=== PATIENT | female | born 1945 | race Two or more races ===

== ENCOUNTER 2021-02-20 11:45 | Inpatient (IN) | payer MEDICAID ==
[~2021-02-20] VITALS: Ht 167.6 cm; Wt 86.6 kg
--- NOTE | 2021-02-20 12:30 | NUR ---
[place] Cath inserted as per Dr Valentin verbal order
[2021-02-20 12:32] LABS: BASOPHILS % (AUTO) 0.3 % (0.0-2.0); EOSINOPHILS % (AUTO) 1.4 % (0.0-6.0); HEMATOCRIT 41 % (33-45); HEMOGLOBIN 13.3 g/dL (11.5-14.8); LYMPHOCYTES # (AUTO) 3.7 K/uL (0.8-4.8); LYMPHOCYTES % (AUTO) 50.7 % (20.0-44.0); MEAN CORPUSCULAR HGB CONC 33 g/dl (31.0-36.0); MEAN CORPUSCULAR VOLUME 96 fL (82-100); MONOCYTES # (AUTO) 0.7 K/uL (0.1-1.30); MONOCYTES % (AUTO) 9.3 % (2.0-12.0); NEUTROPHILS # (AUTO) 2.8 K/uL (1.8-8.9); NEUTROPHILS % (AUTO) 38.3 % (43.0-81.0); PLATELET COUNT (AUTO) 195 K/uL (150-450); RED BLOOD CELL COUNT(AUTO) 4.22 MIL/uL (4.0-5.2); WHITE BLOOD COUNT (AUTO) 7.3 K/uL (4.3-11.0)
[2021-02-20 12:40] LABS: CALCIUM, SERUM 8.9 mg/dL (8.5-10.1); CREATININE 0.9 mg/dL (0.6-1.3); POTASSIUM 3.9 mmol/L (3.5-5.1)
--- NOTE | 2021-02-20 13:00 | NUR ---
Family at bedside. Aware of plan of care
--- NOTE | 2021-02-20 13:20 | NUR ---
MOVE SHEET SUBMITTED AND CALLED FOR MS BED.
--- NOTE | 2021-02-20 13:25 | NUR ---
[facility] CALLED PARENT EDUCATOR PAGED.
--- NOTE | 2021-02-20 13:26 | NUR ---
CALLED ORTHO PAGED [facility] [place]
[2021-02-20] MEDS ORDERED: [UNRECOGNIZED DRUG - OTHER] PO (13:41)
[2021-02-20] MEDS ORDERED: CHOL100062 PO (13:41)
[2021-02-20] MEDS ORDERED: CALC1TAB30 PO (13:41)
[2021-02-20] MEDS ORDERED: [UNRECOGNIZED DRUG - OTHER] PO (13:41)
[2021-02-20] MEDS ORDERED: [UNRECOGNIZED DRUG - SUPPLY] PO (13:41)
[2021-02-20] MEDS ORDERED: ONDANSETRON HCL/PF 4 MG/2 ML VIAL ONE (13:56)
[2021-02-20] MEDS ORDERED: ACETAMINOPHEN 325 MG TABLET PO PRN (14:00)
[2021-02-20] MEDS ORDERED: Z GUARD REMEDY 2 OZ OINT TP PRN (14:00)
[2021-02-20] MEDS ORDERED: ONDANSETRON HCL/PF 4 MG/2 ML VIAL IVP PRN (14:00)
[2021-02-20] MEDS ORDERED: MAGNESIUM HYDROXIDE 30 ML UDC PO PRN (14:00)
--- NOTE | 2021-02-20 14:00 | NUR ---
Pt vomited 2x/complaining of "pain and stomach acid" Dr Valentin made aware verbal orders for morphine/zofran obtained given as ordered. Daughter at bedside aware of plan of care
[2021-02-20] MEDS ORDERED: MAG HYDROX/AL HYDROX/SIMETH 30 ML UDC ONE (14:03)
[2021-02-20] MEDS ORDERED: MORPHINE SULFATE INJ 2 MG/ML DISP.SYRIN ONE ×2 (14:03→18:21)
[2021-02-20] MEDS: MAG HYDROX/AL HYDROX/SIMETH 30 ML UDC PO PRN (14:05)
[2021-02-20] MEDS: MORPHINE SULFATE INJ 2 MG/ML DISP.SYRIN IV PRN ×3 (14:05→22:37)
--- NOTE | 2021-02-20 16:00 | NUR ---
Sleeping soundly, NAD . Family at bedside updated w/plan of care
--- NOTE | 2021-02-20 18:16 | NUR ---
Covid swab sent
--- NOTE | 2021-02-20 18:24 | NUR ---
Medicated for complaints of pain
--- NOTE | 2021-02-20 18:37 | NUR ---
GOT BED 326-1 READY AFTER 193
--- NOTE | 2021-02-20 20:00 | NUR ---
REPORT GIVEN TO JOON GODOY ON THE PHONE W/ DR LYNN, ORTHO
--- NOTE | 2021-02-20 20:11 | NUR ---
PT WAS TRANSFERRED TO 326 IN STABLE CONDITION
--- NOTE | 2021-02-20 20:15 | NUR ---
MS/RN OPENING NOTE RECEIVED REPORT FROM HEAD OF DIGITAL ADVERTISING & INTEGRATION CARLOS. PATIENT ARRIVED TO UNIT VIA GURNEY AND 2 STAFF MEMBERS. PATIENT ASSISTED TO ROOM 326-1 - ADMITTING DX OF RIGHT FEMUR FRACTURE S/P FALL. PATIENT IS ALERT AND ORIENTED X 4. PORTUGUESE SPEAKING ONLY. C/O PAIN TO RIGHT HIP - WILL ADMINISTER PAIN MEDICATION WHEN DUE. CONTINUES ON 02 2L VIA NC WITH NO S/SX OF RESPIRATORY DISTRESS NOTED. IV ACCESS TO LEFT HAND #20G INTACT, PATENT AND SALINE LOCKED. SKIN CHECK PERFORMED WITH NO SKIN ISSUES NOTED. RIGHT LOWER LEG ROTATION AND SHORTENING NOTED. PATIENT VACCINATED FOR COVID 19 X 2 DOSES. PATIENT ORIENTED TO ROOM, CALL LIGHT AND UNIT. CALL LIGHT WITHIN REACH. ASPIRATION, FALL AND SAFETY PRECAUTIONS MAINTAINED. WILL CONTINUE TO MONITOR.
[2021-02-20] MEDS ORDERED: IBUPROFEN 600 MG TABLET PO PRN (20:30)
--- NOTE | 2021-02-20 20:30 | NUR ---
MS/RN NOTE PATIENT WITH INCREASED BLOOD PRESSURE AND C/O PAIN TO RIGHT HIP. BP 173/97. MANAGER PROFESSIONAL DEVELOPMENT MD KULKARNI NOTIFIED WITH NEW ORDER FOR MOTRIN 600MG Q6HRS PRN. INSTRUCTED TO ADMINISTER TYLENOL AND MOTRIN TOGETHER FOR BREAKTHROUGH PAIN. ORDER ADDED TO EMAR AND ADMINISTERED. WILL CONTINUE TO MONITOR.
[2021-02-20 20:51] VITALS: BP 173/97
[2021-02-20 21:02] VITALS: BP 173/97
[2021-02-21] VITALS (11 sets, daily range): BP systolic 65–137; BP diastolic 38–104
[2021-02-21] MEDS: MORPHINE SULFATE INJ 2 MG/ML DISP.SYRIN IV PRN (06:02)
[2021-02-21 06:24] LABS: BASOPHILS % (AUTO) 0.2 % (0.0-2.0); EOSINOPHILS % (AUTO) 1.1 % (0.0-6.0); HEMATOCRIT 36 % (33-45); HEMOGLOBIN 11.9 g/dL (11.5-14.8); LYMPHOCYTES # (AUTO) 1.6 K/uL (0.8-4.8); LYMPHOCYTES % (AUTO) 27.2 % (20.0-44.0); MEAN CORPUSCULAR HGB CONC 33 g/dl (31.0-36.0); MEAN CORPUSCULAR VOLUME 96 fL (82-100); MONOCYTES # (AUTO) 0.6 K/uL (0.1-1.30); MONOCYTES % (AUTO) 10.4 % (2.0-12.0); NEUTROPHILS # (AUTO) 3.6 K/uL (1.8-8.9); NEUTROPHILS % (AUTO) 61.1 % (43.0-81.0); PLATELET COUNT (AUTO) 154 K/uL (150-450); RED BLOOD CELL COUNT(AUTO) 3.72 MIL/uL (4.0-5.2); WHITE BLOOD COUNT (AUTO) 5.9 K/uL (4.3-11.0)
--- NOTE | 2021-02-21 06:35 | NUR ---
MS/RN CLOSING NOTE PATIENT CURRENTLY SLEEPING IN BED. ALERT AND ORIENTED X 4. ABLE TO MAKE NEEDS KNOWN. PRIMARILY BULGARIAN SPEAKING. DENIES PAIN AT THIS TIME. CONTINUES ON O2 2L VIA NC WITH NO S/SX OF RESPIRATORY DISTRESS NOTED. IV ACCESS TO LEFT HAND #20G INTACT, PATENT AND SALINE LOCKED. CALL LIGHT WITHIN REACH. ASPIRATION, FALL AND SAFETY PRECAUTIONS MAINTAINED. WILL ENDORSE PLAN OF CARE TO ONCOMING SHIFT.
[2021-02-21 06:41] LABS: CALCIUM, SERUM 8.5 mg/dL (8.5-10.1); CREATININE 0.8 mg/dL (0.6-1.3); MAGNESIUM 2.4 mg/dL (1.8-2.4); PHOSPHORUS 3.1 mg/dL (2.5-4.9); POTASSIUM 3.9 mmol/L (3.5-5.1)
--- NOTE | 2021-02-21 07:40 | NUR ---
RN OPENING NOTE RECEIVED PATIENT IN BED. A/O X4. ON NC 02 AT 2 LPM. NO SOB NOTED. NO S/S OF RESPIRATORY DISTRESS. DENIES ANY PAIN OR DISCOMFORT AT THIS TIME. IV ACCESS ON L HAND 20 G, INTACT. SAFETY MEASURES MAINTAINED. BED IN LOWEST POSITION, BRAKES LOCKED. SIDE RAILS UP X2. CALL LIGHT WITHIN REACH. WILL CONTINUE PLAN OF CARE.
[2021-02-21] MEDS ORDERED: CLONIDINE HCL 0.1 MG TABLET PO PRN (09:30)
[2021-02-21] MEDS: METOPROLOL TARTRATE 25 MG TABLET PO SCH ×2 (09:30→21:00)
[2021-02-21] MEDS ORDERED: BUPIVACAINE 0.25% 75 MG/30 ML VIAL ONE (10:45)
[2021-02-21] MEDS ORDERED: BUPIVACAINE 0.5 % PF 150 MG/30 ML VIAL ONE (10:45)
[2021-02-21] MEDS ORDERED: POLYMYXIN B SULFATE 500,000 UNITS ONE (10:45)
[2021-02-21] MEDS ORDERED: FENTANYL PF 100MCG/2ML AMPUL ONE (11:09)
[2021-02-21] MEDS ORDERED: PROPOFOL 20 ML IV ONE (11:09)
[2021-02-21] MEDS ORDERED: ANESTHESIA TRAY IN PYXIS 1 EA TRAY MC ONE (13:17)
[2021-02-21] MEDS ORDERED: DOCUSATE SODIUM 100 MG CAPSULE PO PRN (15:00)
--- NOTE | 2021-02-21 15:10 | NUR ---
RN NOTE PATIENT JUST GOT BACK TO HIS ROOM. S/P RIGHT HIP OPEN REDUCTION & INTERNAL FIXATION BY DR. MORENO. VS BP 92/52 OH 83 RR 18 T 97.8 SA02 100% DR MORENO ORDERED TO RESUME REGULAR DIET, PT EVALUATION, CBC AND BMP LABS FOR TOMORROW. REMOVE PEDRO CATHETER POST OP DAY1.
[2021-02-21] MEDS: MAG HYDROX/AL HYDROX/SIMETH 30 ML UDC PO PRN (16:42)
--- NOTE | 2021-02-21 19:30 | NUR ---
MS RN OPENING NOTES RECEIVED PATIENT RESTING IN BED. A/O X4. ON O2 AT 2LPM VIA NASAL CANNULA. NO SOB NOTED. NO S/S OF RESPIRATORY DISTRESS. WITH NO COMPLAINTS OF ANY PAIN OR DISCOMFORT AT THIS TIME. BP OF 82/54. WITH IV ACCESS AT LEFT HAND G22 WITH IVF NS 500ML IV BOLUS. IV ACCESS ON L HAND 22 G, INTACT AND PATENT. ABLE TO MAKE NEEDS KNOWN. SAFETY MEASURES MAINTAINED. BED IN LOWEST POSITION, BRAKES LOCKED. SIDE RAILS UP X2. KEPT CALL LIGHT WITHIN REACH. WILL CONTINUE TO MONITOR.
--- NOTE | 2021-02-21 19:51 | NUR ---
RN CLOSING NOTE PATIENT RESTING IN BED. A/O X4. ON NC 02 AT 2 LPM. NO SOB NOTED. NO S/S OF RESPIRATORY DISTRESS. NO REPORTS OF ANY PAIN OR DISCOMFORT AT THIS TIME. BP OF 82/54. DR LORETO JOHNSON IS MADE AWARE AND ORDERED NS 500 CC X1 TO RUN FOR BOLUS. IV ACCESS ON L HAND 22 G, INTACT AND PATENT. ABLE TO MAKE NEEDS KNOWN. SAFETY MEASURES MAINTAINED. BED IN LOWEST POSITION, BRAKES LOCKED. SIDE RAILS UP X2. KEPT CALL LIGHT WITHIN REACH. WILL ENDORSE CONTINUITY OF CARE TO ONCOMING SHIFT.
--- NOTE | 2021-02-21 20:00 | NUR ---
RN NOTE ENDORSED TO SIN GARCIA FOR ALONSO. DTR'S NO # [phone] SON IN LAW'S # [phone]
--- NOTE | 2021-02-21 20:00 | NUR ---
MONITORED PATIENT'S BP. BP-75/38MMHG. PATIENT IS ALERT AND COHERENT. ASYMPTOMATIC.
--- NOTE | 2021-02-21 20:40 | NUR ---
RN NOTES V/S CHECKED: BP-67/46, SC-72, RR-20 AND O2 SAT-97% CALLED DR. KULKARNI AND MADE AWARE OF PATIENT'S LOW BP. TO CHECK PATIENT'S BP MANUALLY.
--- NOTE | 2021-02-21 21:35 | NUR ---
RN NOTES PATIENT'S BP CHECKED MANUALLY. BP-65/45. DR. KULKARNI MADE AWARE AND ORDERED NS IV BOLUS 500ML AT 75ML/HR. WILL CONTINUE TO MONITOR.
--- NOTE | 2021-02-21 21:50 | NUR ---
RN NOTES BP RECHECKED. BP-81/54.
--- NOTE | 2021-02-21 22:00 | NUR ---
MS RN NOTES MONITORED PATIENT'S BP. BP- 123/51 TAKEN AT LEFT LOWER LEG. PATIENT IS ALERT AND ORIENTED X4 AND ASYMPTOMATIC
[2021-02-21] MEDS: ANCEF 1 GM/50 ML D5W IV SCH (22:25)
--- NOTE | 2021-02-21 22:49 | NUR ---
RN NOTES MONITORED PATIENT'S VITAL SIGNS: BP-83/50, OR-74BPM, RR-19CPM AND O2 SAT- 97%
[2021-02-22] VITALS (10 sets, daily range): BP systolic 88–144; BP diastolic 49–74
[2021-02-22] MEDS: ANCEF 1 GM/50 ML D5W IV SCH (03:57)
[2021-02-22 06:42] LABS: BASOPHILS % (AUTO) 0.2 % (0.0-2.0); EOSINOPHILS % (AUTO) 0.3 % (0.0-6.0); HEMATOCRIT 29 % (33-45); HEMOGLOBIN 9.5 g/dL (11.5-14.8); LYMPHOCYTES # (AUTO) 2.4 K/uL (0.8-4.8); LYMPHOCYTES % (AUTO) 19.2 % (20.0-44.0); MEAN CORPUSCULAR HGB CONC 33 g/dl (31.0-36.0); MEAN CORPUSCULAR VOLUME 98 fL (82-100); MONOCYTES # (AUTO) 1.1 K/uL (0.1-1.30); MONOCYTES % (AUTO) 8.8 % (2.0-12.0); NEUTROPHILS # (AUTO) 8.9 K/uL (1.8-8.9); NEUTROPHILS % (AUTO) 71.5 % (43.0-81.0); PLATELET COUNT (AUTO) 133 K/uL (150-450); RED BLOOD CELL COUNT(AUTO) 2.93 MIL/uL (4.0-5.2); WHITE BLOOD COUNT (AUTO) 12.4 K/uL (4.3-11.0)
[2021-02-22] MEDS ORDERED: IV NS 0.9% 500 ML BAG IV ONE (07:00)
--- NOTE | 2021-02-22 07:00 | NUR ---
MS RN NOTES PATIENT REMAINS ASYMPTOMATIC, ALERT AND COHERENT X4.
--- NOTE | 2021-02-22 07:07 | NUR ---
MS RN CLOSING NOTES PATIENT RESTING IN BED. A/O X4. ON O2 AT 2LPM VIA NASAL CANNULA. NO SOB NOTED. NO S/S OF RESPIRATORY DISTRESS. WITH NO COMPLAINTS OF ANY PAIN OR DISCOMFORT AT THIS TIME. BP OF 81/52. WITH IV ACCESS AT LEFT HAND G22, INTACT AND PATENT. ABLE TO MAKE NEEDS KNOWN. DUE MEDS GIVEN. SAFETY MEASURES MAINTAINED. BED ON LOWEST AND LOCKED POSITION. SIDE RAILS UP X2. KEPT CALL LIGHT WITHIN REACH. WILL ENDORSE TO NEXT SHIFT FOR ALNOSO.
--- NOTE | 2021-02-22 07:38 | NUR ---
MS/RN OPENING NOTES RECEIVED PATIENT ON BED AWAKE, ALERT AND ORIENTED X4. PATIENT IS ON 2L OXYGEN VIA NASAL CANNULA SATURATING WELL. PATIENT IN NO APPARENT RESPIRATORY DISTRESS NOTED. NO COMPLAINED OF PAIN NOTED AT THIS TIME. WILL CONTINUE TO MONITOR.
[2021-02-22 07:54] LABS: CALCIUM, SERUM 7.9 mg/dL (8.5-10.1); CREATININE 0.8 mg/dL (0.6-1.3); MAGNESIUM 2.5 mg/dL (1.8-2.4); PHOSPHORUS 2.6 mg/dL (2.5-4.9); POTASSIUM 4.1 mmol/L (3.5-5.1)
[2021-02-22] MEDS: ASPIRIN 81 MG TAB.CHEW PO SCH (08:43)
[2021-02-22] MEDS: PANTOPRAZOLE 40 MG TABLET.DR PO SCH (08:43)
[2021-02-22] MEDS: IV NS 0.9% 1,000 ML IV PRN (08:44)
[2021-02-22 08:49] LABS: IRON, SERUM 29 ug/dl (50-175); TOTAL IRON BINDING CAPACITY 219 ug/dl (250-450)
[2021-02-22] MEDS: ENOXAPARIN SODIUM 40 MG/0.4 ML DISP.SYRIN SQ SCH (08:49)
[2021-02-22] MEDS: LOSARTAN POTASSIUM 50 MG TABLET PO SCH (08:50)
[2021-02-22] MEDS: METOPROLOL TARTRATE 25 MG TABLET PO SCH ×2 (08:51→21:07)
--- NOTE | 2021-02-22 09:20 | NUR ---
MS/RN OPENING NOTES RECEIVED PATIENT ON BED AWAKE, ALERT AND ORIENTED X4. PATIENT IS ON 2L OXYGEN VIA NASAL CANNULA SATURATING WELL. PATIENT IN NO APPARENT RESPIRATORY DISTRESS NOTED. NO COMPLAINED OF PAIN NOTED AT THIS TIME. WILL CONTINUE TO MONITOR. Addendum: 02/22/21 at 0921 by JOSHUA PARISH RN ERROR
--- NOTE | 2021-02-22 09:50 | NUR ---
RN NOTES PATIENT SETTING ON THE BED VERBALIZED THAT SHE IS FEELING LIKE TO BE FAINTED, VITAL SIGN TAKEN BP 110/58 PULSE 78 SAO2 99%. WILL CONTINUE TO MONITOR.
[2021-02-22] MEDS: HYDROCODONE/APAP 5/325MG TABLET PO PRN (10:21)
[2021-02-22 10:50] LABS: FERRITIN 135 ng/mL (8-388)
[2021-02-22] MEDS ORDERED: MENTHOL/CETYLPYRD (CEPACOL) 1 LOZ LOZENGE PO PRN (12:00)
[2021-02-22] MEDS ORDERED: CALCIUM CARBONATE 500 MG TAB.CHEW PO PRN (13:00)
--- NOTE | 2021-02-22 13:02 | NUR ---
RN NOTES MARITZA TRAN ORDER CALCIUM CARBONATE 500MG 3X A DAY PRN NOTED AND CARRIED OUT.
[2021-02-22] MEDS: ONDANSETRON HCL/PF 4 MG/2 ML VIAL IVP PRN (16:58)
--- NOTE | 2021-02-22 19:00 | NUR ---
MS/RN CLOSING NOTES PATIENT IS ALERT AND ORIENTED X4. PATIENT IS ON 2L OXYGEN SATURATION 100%. PATIENT IN NO APPARENT RESPIRATORY DISTRESS NOTED. NO COMPLAINED OF PAIN AT THIS TIME. SEEN AND EXAMINED BY MD WITH ORDERS MADE AND CARRIED OUT. ALL DUE MEDICATIONS WAS GIVEN. IV ACCESS AT RIGHT FOREARM #18 G MIDLINE WITH IV FLUID OF NS1L AT 125ML/HR ON AND INFUSING WELL. SAFETY PRECAUTIONS WAS IN PLACED. BED IN LOWEST POSITION AND LOCKED. SIDERAILS UP X2. CALL LIGHT WITHIN REACH. WILL ENDORSED TO QUALITY CONTROL LAB TECH FOR ALONSO.
--- NOTE | 2021-02-22 19:30 | NUR ---
MS RN OPENING NOTE RECEIVED PT AWAKE IN BED. A/O X4. PT IS DOMINICAN-SPEAKING. PT IS ON 2LPM O2 VIA NC SATURATING AT 100%. NO SOB OR S/S OF RESPIRATORY DISTRESS NOTED. PT HAS NO C/O PAIN OR DISCOMFORT AT THIS TIME. IV ACCESS IN RFA #18 MIDLINE INFUSING NS @ 125ML/HR, INTACT AND PATENT. SAFETY PRECAUTIONS MAINTAINED. BED IN LOWEST LOCKED POSITION, HOB ELEVATED, SIDE RAILS UP X2. CALL LIGHT AND TABLE WITHIN REACH. WILL CONTINUE WITH PLAN OF CARE.
[2021-02-23] MEDS: ONDANSETRON HCL/PF 4 MG/2 ML VIAL IVP PRN ×2 (00:29→09:05)
--- NOTE | 2021-02-23 00:29 | NUR ---
RN NOTE PT HAD EMESIS X1. PER PT REQUEST, ADMINISTERED ZOFRAN 4MG IVP Q4H PRN FOR NAUSEA AND VOMITING. WILL REASSESS PT IN 30 MINS AND CONTINUE TO MONITOR.
[2021-02-23 04:00] VITALS: BP 124/64
[2021-02-23 06:39] LABS: BASOPHILS % (AUTO) 0.2 % (0.0-2.0); EOSINOPHILS % (AUTO) 0.1 % (0.0-6.0); HEMATOCRIT 26 % (33-45); HEMOGLOBIN 8.7 g/dL (11.5-14.8); LYMPHOCYTES # (AUTO) 1.4 K/uL (0.8-4.8); LYMPHOCYTES % (AUTO) 12.8 % (20.0-44.0); MEAN CORPUSCULAR HGB CONC 34 g/dl (31.0-36.0); MEAN CORPUSCULAR VOLUME 96 fL (82-100); MONOCYTES % (AUTO) 9.1 % (2.0-12.0); NEUTROPHILS # (AUTO) 8.4 K/uL (1.8-8.9); NEUTROPHILS % (AUTO) 77.8 % (43.0-81.0); PLATELET COUNT (AUTO) 148 K/uL (150-450); RED BLOOD CELL COUNT(AUTO) 2.66 MIL/uL (4.0-5.2); WHITE BLOOD COUNT (AUTO) 10.8 K/uL (4.3-11.0)
--- NOTE | 2021-02-23 06:59 | NUR ---
MS RN CLOSING NOTE PT IS AWAKE IN BED. A/O X4. PT IS BERMUDIAN-SPEAKING. PT IS ON 2LPM O2 VIA NC SATURATING AT 100%. NO SOB OR S/S OF RESPIRATORY DISTRESS NOTED. PT HAS NO C/O PAIN OR DISCOMFORT AT THIS TIME. IV ACCESS IN RFA #18 MIDLINE INFUSING NS @ 125ML/HR, INTACT AND PATENT. ALL NEEDS HAVE BEEN MET. SAFETY PRECAUTIONS MAINTAINED AT ALL TIMES. BED IN LOWEST LOCKED POSITION, HOB ELEVATED, SIDE RAILS UP X2. CALL LIGHT AND TABLE WITHIN REACH. WILL ENDORSE TO ONCOMING NURSE FOR ALONSO.
[2021-02-23 07:15] LABS: ALBUMIN 2.4 g/dL (3.4-5.0); BILIRUBIN,TOTAL 0.7 mg/dL (0.2-1.0); CALCIUM, SERUM 8.1 mg/dL (8.5-10.1); CREATININE 0.8 mg/dL (0.6-1.3); PHOSPHORUS 2.2 mg/dL (2.5-4.9); POTASSIUM 4.4 mmol/L (3.5-5.1); TOTAL PROTEIN, SERUM 5.6 g/dL (6.4-8.2)
--- NOTE | 2021-02-23 07:51 | NUR ---
MS/RN OPENING NOTES RECEIVED PATIENT ON BED AWAKE ALERT AND ORIENTED X4. PATIENT IS ON 2L OXYGEN VIA NASAL CANNULA., PATIENT IN NO APPARENT RESPIRATORY DISTRESS NOTED. NO COMPLAINED OF PAIN AT THIS TIME. WILL CONTINUE TO MONITOR.
[2021-02-23 07:57] LABS: CHOLESTEROL 173 mg/dL (<200); HDL CHOLESTEROL 44 mg/dL (40-60); LDL 108 mg/dL (0-99); TRIGLYCERIDES 96 mg/dL (30-150)
[2021-02-23 08:00] VITALS: BP 116/59
[2021-02-23] MEDS: IV NS 0.9% 1,000 ML IV PRN ×2 (08:47→18:04)
[2021-02-23] MEDS: ASPIRIN 81 MG TAB.CHEW PO SCH (08:55)
[2021-02-23] MEDS: PANTOPRAZOLE 40 MG TABLET.DR PO SCH (08:55)
[2021-02-23] MEDS: ENOXAPARIN SODIUM 40 MG/0.4 ML DISP.SYRIN SQ SCH (08:56)
[2021-02-23] MEDS: METOPROLOL TARTRATE 25 MG TABLET PO SCH ×2 (09:00→21:00)
[2021-02-23] MEDS: LOSARTAN POTASSIUM 50 MG TABLET PO SCH (09:00)
[2021-02-23] MEDS ORDERED: K PHOS NEUTRAL 250 MG TABLET PO ONE (09:30)
[2021-02-23] MEDS: SOD FERRIC GLUC 125 MG in IV NS 0.9% 100 ML IV SCH (13:08)
[2021-02-23] MEDS: HYDROCODONE/APAP 5/325MG TABLET PO PRN (14:44)
[2021-02-23] MEDS: ENSURE ENLIVE CHOC 237 ML CAN PO SCH ×2 (15:00→17:09)
[2021-02-23 16:00] VITALS: BP 104/75
--- NOTE | 2021-02-23 19:30 | NUR ---
MS/RN CLOSING NOTES PATIENT IS ALERT AND ORIENTED X4. PATIENT IS IN ROOM AIR SATURATION 96%. PATIENT IN NO APPARENT RESPIRATORY DISTRESS NOTED. NO COMPLAINED OF PAIN AT THIS TIME. SEEN AND EXAMINED BY MD WITH ORDERS MADE AND CARRIED OUT. ALL DUE MEDICATIONS WAS GIVEN. IV ACCESS AT RIGHT FOREARM #18 G MIDLINE WITH IV FLUID OF NS1L AT 125ML/HR ON AND INFUSING WELL. SAFETY PRECAUTIONS WAS IN PLACED. BED IN LOWEST POSITION AND LOCKED. SIDERAILS UP X2. CALL LIGHT WITHIN REACH. WILL ENDORSED TO BUSINESS PROCESS SPECIALIST FOR ALONSO.
--- NOTE | 2021-02-23 19:45 | NUR ---
MS/RN OPENING NOTE RECEIVED PATIENT RESTING IN BED. AWAKE, ALERT AND ORIENTED X 4. PRIMARILY CROATIAN SPEAKING. ABLE TO MAKE NEEDS KNOWN. DENIES PAIN AT THIS TIME. CONTINUES ON ROOM AIR WITH NO S/SX OF RESPIRATORY DISTRESS NOTED. IV ACCESS TO RIGHT UPPER ARM MIDLINE INTACT AND PATENT. CONTINUES ON IVF NS @ 125ML/HR. PATIENT DENIES NAUSEA OR VOMITING AT THIS TIME. TOLERATING REGULAR DIET WELL. CALL LIGHT WITHIN REACH. ASPIRATION, FALL AND SAFETY PRECAUTIONS MAINTAINED. WILL CONTINUE TO MONITOR.
[2021-02-24] VITALS (7 sets, daily range): BP systolic 93–123; BP diastolic 54–95
[2021-02-24] MEDS: IV NS 0.9% 1,000 ML IV PRN ×2 (01:59→16:36)
[2021-02-24] MEDS: HYDROCODONE/APAP 5/325MG TABLET PO PRN (05:52)
--- NOTE | 2021-02-24 06:45 | NUR ---
MS/RN CLOSING NOTE PATIENT CURRENTLY RESTING IN BED. AWAKE, ALERT AND ORIENTED X 4. PRIMARILY SERBIAN SPEAKING. ABLE TO MAKE NEEDS KNOWN. DENIES PAIN AT THIS TIME. CONTINUES ON ROOM AIR WITH NO S/SX OF RESPIRATORY DISTRESS NOTED. IV ACCESS TO RIGHT UPPER ARM MIDLINE INTACT AND PATENT. CONTINUES ON IVF NS @ 125ML/HR. PATIENT DENIES NAUSEA OR VOMITING AT THIS TIME. TOLERATING REGULAR DIET WELL. DRESSING TO RIGHT HIP SURGICAL SITE CHANGED D/T SEROSANGUINEOUS DRAINAGE. CALL LIGHT WITHIN REACH. ASPIRATION, FALL AND SAFETY PRECAUTIONS MAINTAINED. WILL ENDORSE PLAN OF CARE TO ONCOMING SHIFT.
[2021-02-24 06:46] LABS: BASOPHILS % (AUTO) 0.4 % (0.0-2.0); EOSINOPHILS % (AUTO) 0.4 % (0.0-6.0); HEMATOCRIT 22 % (33-45); HEMOGLOBIN 7.3 g/dL (11.5-14.8); LYMPHOCYTES # (AUTO) 1.6 K/uL (0.8-4.8); LYMPHOCYTES % (AUTO) 18.4 % (20.0-44.0); MEAN CORPUSCULAR HGB CONC 33 g/dl (31.0-36.0); MEAN CORPUSCULAR VOLUME 98 fL (82-100); MONOCYTES # (AUTO) 0.8 K/uL (0.1-1.30); NEUTROPHILS # (AUTO) 6.3 K/uL (1.8-8.9); NEUTROPHILS % (AUTO) 71.8 % (43.0-81.0); PLATELET COUNT (AUTO) 137 K/uL (150-450); RED BLOOD CELL COUNT(AUTO) 2.26 MIL/uL (4.0-5.2); WHITE BLOOD COUNT (AUTO) 8.8 K/uL (4.3-11.0)
[2021-02-24 06:55] LABS: CALCIUM, SERUM 7.6 mg/dL (8.5-10.1); CREATININE 0.7 mg/dL (0.6-1.3); POTASSIUM 3.8 mmol/L (3.5-5.1)
--- NOTE | 2021-02-24 07:30 | NUR ---
MS RN OPENING NOTE RECEIVED PATIENT RESTING IN BED. ASLEEP, EASILY AWAKEN BY VERBAL AND TACTILE STIMULI. PATIENT IS A BELIZEAN SPEAKER. ABLE TO MAKE NEEDS KNOWN. NO S/SX OF PAIN AT THIS TIME. CONTINUES ON ROOM AIR WITH NO S/SX OF RESPIRATORY DISTRESS NOTED. IV ACCESS TO RIGHT UPPER ARM MIDLINE INTACT AND PATENT. CONTINUES ON IVF NS @ 125ML/HR. PATIENT DENIES NAUSEA OR VOMITING AT THIS TIME. TOLERATING REGULAR DIET WELL. CALL LIGHT WITHIN REACH. ASPIRATION, FALL AND SAFETY PRECAUTIONS MAINTAINED. SIDE RAILS UP X 2. WILL CONTINUE TO MONITOR ACCORDINGLY.
[2021-02-24] MEDS: ENSURE ENLIVE CHOC 237 ML CAN PO SCH ×2 (08:22→17:11)
[2021-02-24] MEDS: ASPIRIN 81 MG TAB.CHEW PO SCH (08:41)
[2021-02-24] MEDS: PANTOPRAZOLE 40 MG TABLET.DR PO SCH (08:41)
[2021-02-24] MEDS: ENOXAPARIN SODIUM 40 MG/0.4 ML DISP.SYRIN SQ SCH (08:47)
[2021-02-24] MEDS: METOPROLOL TARTRATE 25 MG TABLET PO SCH ×2 (08:50→20:42)
[2021-02-24] MEDS: LOSARTAN POTASSIUM 50 MG TABLET PO SCH (08:50)
--- NOTE | 2021-02-24 10:28 | NUR ---
RN NOTES PER DR. JOHNSON, PATIENT IS MEDICALLY CLEARED FOR DC AFTER BLOOD TRANSFUSION, INFORM DR. MORENO OF DC ORDER FOR CLEARANCE ON SURGICAL STANDPOINT. PER DR. MORENO, PATIENT IS CLEARED FOR DC IF PATIENT WILL BE DC ON REHAB FACILITY, CASE MANAGEMENT MADE AWARE. PER CASE MANAGEMENT, PATIENT HAS NO INSURANCE, DISCUSSED CASE WITH PATIENT'S DAUGHTER AND DR. MORENO. PATIENT WILL STAY OVERNIGHT, WILL BE PROVIDED WITH WALKER, AND WILL HAVE PT IN AM THEN DISCHARGE. DR. MORENO AND DAUGHTER AGREED WITH PLAN.
[2021-02-24] MEDS ORDERED: DOCU-270 PO (10:30)
--- NOTE | 2021-02-24 12:43 | NUR ---
RN NOTES BLOOD TRANSFUSION STARTED ORDERED. BLOOD PRODUCT VERIFIED WITH PITA Baptiste VITAL SIGNS FOLLOWS TEMP 98, NM 75 RR 18 BP 93/65.
--- NOTE | 2021-02-24 13:05 | NUR ---
RN NOTES PATIENT TOLERATING BLOOD TRANSFUSION WELL. NO UNTOWARD REACTION NOTED. VITAL SIGNS WARTHIN NORMAL LIMITS.
--- NOTE | 2021-02-24 15:15 | NUR ---
RN NOTES BLOOD TRANSFUSION DONE, PATIENT ABLE TO TOLERATE, NO UNTOWARD REACTION NOTED. WILL CONTINUE TO MONITOR.
[2021-02-24] MEDS: SOD FERRIC GLUC 125 MG in IV NS 0.9% 100 ML IV SCH (16:48)
[2021-02-24 17:07] LABS: HEMOGLOBIN 8.3 g/dL (11.5-14.8)
--- NOTE | 2021-02-24 18:43 | NUR ---
MS RN CLOSING NOTE PATIENT RESTING IN BED. AWAKE, A&O X 3-4. DAUGHTER AT BEDSIDE. PATIENT IS A BELARUSIAN SPEAKER. ABLE TO MAKE NEEDS KNOWN. NO S/SX OF PAIN AT THIS TIME. CONTINUES ON ROOM AIR WITH NO S/SX OF RESPIRATORY DISTRESS NOTED. IV ACCESS TO RIGHT UPPER ARM MIDLINE INTACT AND PATENT. CONTINUES ON IVF NS @ 125ML/HR. PATIENT DENIES NAUSEA OR VOMITING AT THIS TIME. TOLERATING REGULAR DIET WELL. CALL LIGHT WITHIN REACH. ASPIRATION, FALL AND SAFETY PRECAUTIONS MAINTAINED. SIDE RAILS UP X 2. WILL ENDORSE TO ONCOMING SHIFT FOR ALONSO.
--- NOTE | 2021-02-24 19:30 | NUR ---
MS RN OPENING NOTES RECEIVED PATIENT RESTING IN BED. AWAKE, A&O X4 WITH DAUGHTER AT BEDSIDE. PATIENT IS A BENGALI SPEAKING. ABLE TO MAKE NEEDS KNOWN. WITH NO COMPLAINTS OF PAIN AND DISCOMFORT AT THIS TIME. ON ROOM AIR WITH NO SIGNS OF SOB NOTED. NOT IN DISTRESS. WITH IV ACCESS AT RIGHT UPPER ARM MIDLINE, INTACT AND PATENT WITH IVF NS @ 125ML/HR. SAFETY MEASURES IN PLACED. CALL LIGHT WITHIN REACH. ON ASPIRATION, FALL AND SAFETY PRECAUTIONS. BED ON LOWEST AND LOCKED POSITION. SIDE RAILS UP X 2. WILL CONTINUE TO MONITOR.
[2021-02-25] MEDS: IV NS 0.9% 1,000 ML IV PRN (01:43)
[2021-02-25] MEDS: HYDROCODONE/APAP 5/325MG TABLET PO PRN ×2 (05:27→09:43)
--- NOTE | 2021-02-25 05:27 | NUR ---
MS RN NOTES PATIENT REPORTED TO HAVE PAIN AT THE SCALE OF 5/10 AT THE RIGHT LOWER EXTREMITY. NORCO 5-325 TABLET PRN FOR PAIN WITH STABLE V/S: BP-100/60, MA-72, RR-18 AND 02 SAT-98%.
--- NOTE | 2021-02-25 06:27 | NUR ---
MS RN CLOSING NOTES PATIENT RESTING IN BED. AWAKE, A&O X4. PATIENT IS NIUEAN SPEAKING. ABLE TO MAKE NEEDS KNOWN. ON ROOM AIR WITH NO SIGNS OF SOB NOTED. NOT IN DISTRESS. WITH IV ACCESS AT RIGHT UPPER ARM MIDLINE, INTACT AND PATENT WITH IVF NS @ 125ML/HR. DUE MEDS GIVEN. SAFETY MEASURES IN PLACED. CALL LIGHT WITHIN REACH. ON ASPIRATION, FALL AND SAFETY PRECAUTIONS. BED ON LOWEST AND LOCKED POSITION. SIDE RAILS UP X 2. ALL NEEDS ARTTENDED. WILL ENDORSE TO NEXT SHIFT FOR ALONSO.
--- NOTE | 2021-02-25 07:30 | NUR ---
MS RN OPENING NOTES RECEIVED PATIENT IN BED. AWAKE, A&O X3. PATIENT IS A TONGAN SPEAKING. ABLE TO MAKE NEEDS KNOWN. WITH NO COMPLAINTS OF PAIN AND DISCOMFORT AT THIS TIME. ON ROOM AIR WITH NO SIGNS OF SOB NOTED. NOT IN DISTRESS. WITH IV ACCESS AT RIGHT UPPER ARM MIDLINE, INTACT AND PATENT WITH IVF NS @ 125ML/HR. SAFETY MEASURES IN PLACED. CALL LIGHT WITHIN REACH. ON ASPIRATION, FALL AND SAFETY PRECAUTIONS. BED ON LOWEST AND LOCKED POSITION. SIDE RAILS UP X 2. WILL CONTINUE TO MONITOR ACCORDINGLY.
[2021-02-25 07:31] VITALS: BP 123/67
[2021-02-25 08:00] VITALS: BP 95/50
[2021-02-25] MEDS: ENSURE ENLIVE CHOC 237 ML CAN PO SCH (08:00)
[2021-02-25] MEDS: ASPIRIN 81 MG TAB.CHEW PO SCH (08:21)
[2021-02-25] MEDS: METOPROLOL TARTRATE 25 MG TABLET PO SCH (08:21)
[2021-02-25] MEDS: PANTOPRAZOLE 40 MG TABLET.DR PO SCH (08:21)
[2021-02-25 08:22] VITALS: BP 95/50
[2021-02-25] MEDS: LOSARTAN POTASSIUM 50 MG TABLET PO SCH (08:22)
[2021-02-25] MEDS: ENOXAPARIN SODIUM 40 MG/0.4 ML DISP.SYRIN SQ SCH (08:29)
[2021-02-25] MEDS: SOD FERRIC GLUC 125 MG in IV NS 0.9% 100 ML IV SCH (14:17)
--- NOTE | 2021-02-25 15:35 | NUR ---
MS MANAGER LONG TERM CARE NOTES DISCHARGED PATIENT IN STABLE CONDITION. VITAL SIGNS WITHIN NORMAL LIMITS. HEALTH/HOME INSTRUCTIONS/MEDICATIONS PROVIDED TO PATIENT'S DAUGHTER WITH BARB OVER THE PHONE ON LOUD SPEAKER FOR TRANSLATION. PATIENT'S DAUGHTER AND BARB VERBALIZED UNDERSTANDING OF INSTRUCTIONS GIVEN. PRESCRIPTION FOR NORCO HANDED TO PATIENT'S DAUGHTER. INSTRUCTIONS ON FOLLOW UP GIVEN. WOUND CARE PROVIDED AND DEMONSTRATED TO PATIENT'S DAUGHTER, PATIENT'S DAUGHTER VERBALIZED UNDERSTANDING. BELONGINGS SIGNED AND ACCOUNTED FOR. ARMBAND REMOVED. IV ACCESS REMOVED, COVERED WITH GAUZE AND SECURED WITH TAPE. NO BLEEDING NOTED. PATIENT WAS PICKED UP BY 3 EMT'S FROM [facility]. PATIENT LEFT UNIT IN STABLE CONDITION. MD AND CHARGE NURSE AWARE OF DISCHARGE.
== END 2021-02-25 15:30 | disposition home health service (06) | DRG 480 ==
LOC: ER 11:46 → TRANSITION 14:56 → MED 19:16
PROVIDERS: ADMIT Internal Medicine; ATTEND Internal Medicine
PROC: 0QS606Z Reposition Right Upper Femur with Intramedullary Internal Fixation Device, Open Approach (ICD-10-PCS; principal; 2021-02-21)
PROC: 05H533Z Insertion of Infusion Device into Right Subclavian Vein, Percutaneous Approach (ICD-10-PCS; 2021-02-22)
PROC: B546ZZA Ultrasonography of Right Subclavian Vein, Guidance (ICD-10-PCS; 2021-02-22)
PROC: 30233N1 Transfusion of Nonautologous Red Blood Cells into Peripheral Vein, Percutaneous Approach (ICD-10-PCS; 2021-02-24)
DX: M80.051A Age-related osteoporosis with current pathological fracture, right femur, initial encounter for fracture (principal); I21.A1 Myocardial infarction type 2; W10.9XXA Fall (on) (from) unspecified stairs and steps, initial encounter; Y92.009 Unspecified place in unspecified non-institutional (private) residence as the place of occurrence of the external cause; I10 Essential (primary) hypertension; Z95.0 Presence of cardiac pacemaker; Z20.822 Contact with and (suspected) exposure to COVID-19; Z79.82 Long term (current) use of aspirin
CPT/HCPCS: 36410; 36415; 71045-TC; 73501; 73502; 80048-TC; 80053-TC; 80061-TC; 82728-TC; 83540-TC; 83735-TC; 84100-TC; 84484-TC; 85025-TC; 85027-TC; 85730-TC; 86850-TC; 87081-TC; 93307-TC; 97110-TC; 97112-TC; 97530-TC; A4217; A6209; A6253; C1713; G0378; J0690; J1100; J1650; J1885; J2270; J2370; J2405; J2704; J2916; J3010; J3490; J7030; J7040; J7050; J7060; P9016